=== PATIENT | female | born 1960 | race Caucasian/White ===

== ENCOUNTER 2019-07-05 16:33 | Emergency (ER) | payer BC, OTHER ==
[~2019-07-05] VITALS: Ht 160 cm; Wt 93.6 kg
[~2019-07-05 16:33] MED LIST: CEVIMELINE PO; ENBREL INJ; HYDROCET 5-5001 EACH PO; PREDNISOLONE5 MG; Z.0.ARAVA20 MG PO; Z.0.BENTYL20 MG; Z.0.CELEBREX200 MG; Z.0.DIOVAN160 MG PO; Z.0.METOPROLOL TART2; Z.0.NEURONTIN300 MG PO; Z.0.NEXIUM40 MG; Z.0.PLAQUENIL200 MG; Z.0.TRAZODONE HCL50; [UNRECOGNIZED DRUG - OTHER]
[2019-07-05] MEDS ORDERED: KETOROLAC TROMETHAMINE 60 MG/2 ML VIAL IM ONE (17:00)
[2019-07-05] MEDS ORDERED: COLACE100 MG PO (17:46)
[2019-07-05] MEDS ORDERED: ULTRAM 50MG50 MG PO (17:46)
--- NOTE | 2019-07-05 17:56 | Diagnostic Imaging Report ---
RIGHT KNEE - 3 Image(s) HISTORY: Fall, pain COMPARISON: None available. FINDINGS: Bones: No acute displaced fracture. No aggressive osseous lesion. Joints: Osseous alignment is within normal limits and the joint spaces are well-maintained. Soft tissues: The soft tissues appear unremarkable. IMPRESSION: No acute radiographic abnormality. Signed by: Dr. Michael Kumar D.O., M.M.M. on 07/05/2019 5:53 PM
[2019-07-05] MEDS ORDERED: KETOROLAC TROMETHAMINE 30 MG/ML VIAL ONE (17:59)
--- NOTE | 2019-07-05 17:59 | Diagnostic Imaging Report ---
RIGHT HIP - 2 Image(s) HISTORY: Fall, pain COMPARISON: None available. FINDINGS: Bones: Some of the osseous structures are partially obscured by stool and overlying bowel gas. A 6 mm curvilinear calcification adjacent to the superior aspect of the right greater trochanter. No aggressive osseous lesion. Joints: Minimal scattered degenerative changes. Soft tissues: Multiple pelvic phleboliths. IMPRESSION: A 6 mm calcific density adjacent to the superior aspect of the right greater trochanter, may reflect a subtle age-indeterminate avulsion fracture versus small focus of calcific tendinopathy. Correlate for an acute avulsion fracture via focal acute point tenderness. Signed by: Dr. Michael Kumar D.O., M.M.M. on 07/05/2019 5:55 PM
[2019-07-05 19:06] VITALS: BP 165/97
[2019-07-23] MEDS ORDERED: AMLODIPINE BESY10 MG PO (11:47)
[2019-07-23] MEDS ORDERED: INDOMETHACIN1 MG (11:47)
[2019-07-23] MEDS ORDERED: MONTELUKAST SOD10 MG PO (11:47)
[2019-07-23] MEDS ORDERED: NEXIUM20 MG PEG (11:47)
[2019-07-23] MEDS ORDERED: INDOMETHACIN75 MG PEG (11:47)
[2019-07-23] MEDS ORDERED: LOSARTAN-HCTZ1 EAC1 PO (11:47)
== END 2019-07-05 18:37 | disposition home or self-care (01) ==
LOC: FSED 16:33
DX: S83.411A Sprain of medial collateral ligament of right knee, initial encounter (principal); M25.551 Pain in right hip; W01.0XXA Fall on same level from slipping, tripping and stumbling without subsequent striking against object, initial encounter; Y92.008 Other place in unspecified non-institutional (private) residence as the place of occurrence of the external cause; F17.210 Nicotine dependence, cigarettes, uncomplicated; I10 Essential (primary) hypertension
CPT/HCPCS: 73502; 73562; 96372; 99284; J1885 ×2

== ENCOUNTER → 2019-07-26 | Day surgery (SDC) | payer BC ==
[2019-07-23 12:44] LABS: BLOOD UREA NITROGEN 13 mg/dL (7-26); BUN/CREATININE RATIO 20 (6-25); CALCIUM 10.1 mg/dL (8.4-10.2); CARBON DIOXIDE 28 mmol/L (22-29); CHLORIDE 92 mmol/L (98-107); CREATININE, SERUM 0.66 mg/dL (0.57-1.11); EST GLOMERULAR FILTRATION RATE > 60 ML/MIN (60-); GLUCOSE 85 mg/dL (74-118); SODIUM 130 mmol/L (136-145)
--- NOTE | 2019-07-23 13:40 | Diagnostic Imaging Report ---
Chest, PA and lateral. History: Preoperative evaluation for foot surgery. Comparison: None available. Discussion: The cardiomediastinal silhouette and pulmonary vasculature are within normal limits. The lungs are clear without evidence of consolidation or effusion. There are no acute osseous abnormalities. IMPRESSION: No radiographic evidence of acute cardiopulmonary abnormality. Signed by: Ivan Potter MD on 07/23/2019 1:37 PM
[~2019-07-26] MED LIST changes: +AMLODIPINE BESY10 MG PO; +BUPIVACAINE 0.25% 30ML SDV INJ ONE; +BUPIVACAINE HCL 0.5% INJ 30 ML VIAL INJ ONE; +CEFAZOLIN SOD 1 GM/NS 50ML 100 ML IV ONE; +COLACE100 MG PO; +DEXAMETHASONE SOD PHOS INJ 4 MG/ML VIAL ONE; +FENTANYL CITRATE/PF 100MCG/2 ML INJ ONE; +INDOMETHACIN1 MG; +INDOMETHACIN75 MG PEG; +KETOROLAC TROMETHAMINE 30 MG/ML VIAL ONE; +LIDOCAINE 1% W/EPINEPHRINE 20 ML VIAL ONE; +LIDOCAINE HCL 2% LOCAL INJ 5 ML SDV VIAL INJ ONE; +LOSARTAN-HCTZ1 EAC1 PO; +METHYLPREDNISOLONE ACETATE 80 MG/ML VIAL ONE; +MIDAZOLAM HCL 2 MG/2 ML VIAL ONE; +MONTELUKAST SOD10 MG PO; +NEXIUM20 MG PEG; +ONDANSETRON HCL INJ 2MG/ML 2ML 2 MG/ML VIAL ONE; +PROPOFOL IV EMULSION 10 MG/ML 20 ML VIAL ONE; +SEVOFLURANE INHAL SOLN 250 ML PEN BTL ONE; +ULTRAM 50MG50 MG PO
--- OUTSIDE RECORDS SUMMARY | 2019-07-26 05:13 | XMS REPORT ---
Author Author [facility] Address Unknown Phone Unavailable Care Team Providers Care Director Fixed Income Name Role Phone Garrett BURROWS Unavailable Unavailable Narinder SZYMANSKI Unavailable Unavailable Problems This patient has no known problems. Allergies, Adverse Reactions, Alerts This patient has no known allergies or adverse reactions. Medications This patient has no known medications. Results Test Description Test Time Test Comments Text Results Atomic Results Result Comments CHEST 2 VIEWS 2019-07-23 13:36:00 [facility] [address] [address] Patient Name: HUNTER JEAN MR #: [id number] : 1960 Age/Sex: 59/F Req #: [id number] Adm Physician: Ordered by: CEZAR BURROWS DO Report #: [id number] Location: OR Room/Bed: Procedure: [id number] DX/CHEST 2 VIEWS Exam Date: Exam Time: REPORT STATUS: Signed Chest, PA and lateral. History: Preoperative evaluation for foot surgery. Comparison: None available. Discussion: The cardiomediastinal silhouette and pulmonary vasculature are within normal limits. The lungs are clear without evidence of consolidation or effusion. There are no acute osseous abnormalities. IMPRESSION: No radiographic evidence of acute cardiopulmonary abnormality. Signed by: Ivan Houser MD on 07/23/2019 1:37 PM Dictated By: IVAN HOUSER MD 36 Transcribed By: HARSHIL on 07/23/191336 COPY TO: MARKOSCEZAR Garrett HIP 2 VW RT - HOPD 2019-07-05 17:53:[address] [address] Patient Name: HUNTER JEAN MR #: [id number] : 1960 Age/Sex: 59/F Req #: [id number] Adm Physician: Ordered by: GENNY SZYMANSKI MD Report #: [id number] Location: [facility] Room/Bed: Procedure: [id number] HOPD/HIP 2 VW RT - [facility] Exam Date: 07/05/19 Exam Time: 1732 REPORT STATUS: Signed RIGHT HIP - 2 Image(s) HISTORY: Fall, pain COMPARISON: None available. FINDINGS: Bones: Some of the osseous structures are partially obscured by stool and overlying bowel gas. A 6 mm curvilinear calcification adjacent to the superior aspect of the right greater trochanter. No aggressive osseous lesion. Joints: Minimal scattered degenerative changes. Soft tissues: Multiple pelvic phleboliths. IMPRESSION: A 6 mm calcific density adjacent to the superior aspect of the right greater trochanter, may reflect a subtle age- indeterminate avulsion fracture versus small focus of calcific tendinopathy. Correlate for an acute avulsion fracture via focal acute point tenderness. Signed by: Mariano AritaO., M.M.M. on 07/05/2019 5:55 PM Dictated By: RONEY KUMAR DO 54 Transcribed By: HARSHIL on 07/05/191754 COPY TO: GENNY SZYMANSKI MD KNEE 3VW RT - HOPD 2019-07-05 17:52:00 [address] [address] Patient Name: HUNTER JEAN MR #: [id number] : 1960 Age/Sex: 59/F Req #: [id number] Adm Physician: Ordered by: GENNY SZYMANSKI MD Report #: [id number] Location: [facility] Room/Bed: Procedure: [id number] HOPD/KNEE 3VW RT - HOPD Exam Date: 07/05/19 Exam Time: 1732 REPORT STATUS: Signed RIGHT KNEE - 3 Image(s) HISTORY: Fall, pain COMPARISON: None available. FINDINGS: Bones: No acute displaced fracture. No aggressive osseous lesion. Joints: Osseous alignment is within normal limits and the joint spaces are well- maintained. Soft tissues: The soft tissues appear unremarkable. IMPRESSION: No acute radiographic abnormality. Signed by: Dr. Roney Kumar D.O., M.M.M. on 07/05/2019 5:53 PM Dictated By: RONEY KUMAR DO 52 Transcribed By: HARSHIL on 07/05/191752 COPY TO: GENNY SZYMANSKI MD
[2019-07-26 06:42] LABS: ANION GAP 11.2 mmol/L (8-16); BLOOD UREA NITROGEN 12 mg/dL (7-26); BUN/CREATININE RATIO 19 (6-25); CALCIUM 8.9 mg/dL (8.4-10.2); CARBON DIOXIDE 27 mmol/L (22-29); CHLORIDE 93 mmol/L (98-107); CREATININE, SERUM 0.64 mg/dL (0.57-1.11); EST GLOMERULAR FILTRATION RATE > 60 ML/MIN (60-); GLUCOSE 107 mg/dL (74-118); POTASSIUM 3.2 mmol/L (3.5-5.1); SODIUM 128 mmol/L (136-145)
[2019-07-26 09:15] VITALS: BP 129/92
--- NOTE | 2019-07-26 12:27 | NUR ---
ORTHOPEDICS OPERATIVE NOTE DATE OF SURGERY: 07/26/19 PREOPERATIVE DIAGNOSES: Right Knee Medial Meniscus Tear POSTOPERATIVE DIAGNOSES: Right Knee Medial Meniscus Tear, Chondromalacia, Impinging Plica, Lateral compartment pericruciate cyst PROCEDURE: Right Knee Arthroscopic Medial Meniscus Repair, Excision of pericruciate cyst, Excision of Impinging Plica, Chondroplasty, SURGEON: Berkley Navarro DO CREEL OPERATOR: None ANESTHESIA: General COMPLICATIONS: None TOURNIQUET: Applied but not inflated. No tourniquet EBL: Minimal INDICATIONS: Due to persistent pain and limitations on activity combined with findings on exam and imaging, the patient requests surgical treatment. Nonopera tive care and alternative surgical options were reviewed. We agreed that this provided the best risk/benefit profile for this patient, understanding and accepting risks of recurrent/persistent symptoms, infection, bleeding, stiffness, neurological/vascular damage, failure to improve and anesthetic complication (as reviewed by anesthesia service). Also, the patient understands that arthroscopic treatment of articular cartilage lesions provides temporary incomplete relief but that meniscal symptoms should be well addressed. FINDINGS: RIGHT Knee Patella Grade 3-4 Chondromalacia of lateral patellar ridge Trochlea - Grade 1 Lateral Gutter Chondral loose bodies Medial Gutter Chondral loose bodies Medial Compartment Femoral - Grade 1 Tibial - Grade 1 Medial Meniscus - Red red zone undersurface tear of body posterior horn junction Cruciate region - Lateral sided pericruciate ligament cyst Lateral Compartment Femoral - Grade 1 Tibial - Grade 1-2 Lateral Meniscus - lateral pericruciate cyst impinging near posterior horn meniscus root Synovium - Hypertrophic impinging plica PROCEDURE: With the patient in the supine position with all prominences well padded, general anesthesia was obtained. Sterile prepping and draping were performed. Antibiotics had been given and a time out performed. After an injection of 1% Lidocaine with Epinephrine in the proposed incision sites, The arthroscope was i nserted via a small lateral parapatellar tendon incision into the patellofemoral space. Under direct visualization, a medial parapatellar tendon portal was created providing a working portal. Diagnostic arthroscopy was performed and the above findings were noted. Within the patellofemoral space, grade 3-4 chondromalacia was noted within the superior portion of the lateral central patellar ridge Within the medial compartment, the medial meniscus was debrided, trephinated to get a good bleeding bed. A ceterix 2-0 novostitch and fast fix was used to reapproxiamate and stilized the tear. A fast fix was used to help maintain the meniscus abutment. The meniscus repair was found to be stable on probing. t There was grade 1 chondromalacia, which was debrided to stable borders. Within the intercondylar space, the ACL was visualized and intact The lateral compartment demonstrated a pericruciate cyst near the posterior horn root of the lateral meniscus. This was excised with a shaver. Chondroplasty was performed on the patella to provide a stable border and the impinging medial plica was excised. The joint was extravasated and a fibrin clot was injected over the repair to improve biologic healing. 0.25% marcaine was injected into the knee. The incisions were closed and more local was injected around the portal sites. Steristrips, Xeroform, 4x4s, ABDs and a compressive PAPA bandage and a brace were applied. The patient was awakened and transferred to the PACU in satisfactory condition having tolerated the procedure well. PREOPERATIVE DIAGNOSES: Left Knee Medial Meniscal Root and Lateral Meniscus Tear POSTOPERATIVE DIAGNOSES: Left Knee Medial Meniscal Root and Lateral Meniscus Posterior Horn Tear, Medial Plica Syndrome PROCEDURE: Left Knee Arthroscopic Medial Mensical Root Repair and Lateral Meniscus Posterior Horn Repair, Excision of Medial Plica, Application of Fibrin Clot SURGEON: Berkley Navarro DO CREEL OPERATOR: ELIZABETH Parker ANESTHESIA: General COMPLICATIONS: None TOURNIQUET: Applied but not inflated. No tourniquet EBL: Minimal INDICATIONS: Due to persistent pain and limitations on activity combined with findings on exam and imaging, the patient requests surgical treatment. Nonopera tive care and alternative surgical options were reviewed. We agreed that this provided the best risk/benefit profile for this patient, understanding and accepting risks of recurrent/persistent symptoms, infection, bleeding, stiffness, neurological/vascular damage, failure to improve and anesthetic complication (as reviewed by anesthesia service). Also, the patient understands that arthroscopic treatment of articular cartilage lesions provides temporary incomplete relief but that meniscal symptoms should be well addressed. FINDINGS: LEFT Knee 1.Patella Grade 2 2.Trochlea - Grade 1 3.Lateral Gutter Normal 4.Medial Gutter Normal 5.Medial Compartment a.Femoral - Grade 2 b.Tibial - Grade 1 c.Medial Meniscus - attenuated and imcompetent root tear 6.Cruciate region - Normal 7.Lateral Compartment a.Femoral - Normal b.Tibial - Grade 1 c.Lateral Meniscus - Unstable posterior horn undersided tear 8.Synovium - Hypertrophic Impinging Plica PROCEDURE: With the patient in the supine position with all prominences well padded, general anesthesia was obtained. Sterile prepping and draping were performed. Antibiotics had been given and a time out performed. After an injection of 1% Lidocaine with Epinephrine in the proposed incision sites, The arthroscope was i nserted via a small lateral parapatellar tendon incision into the patellofemoral space. Under direct visualization, a medial parapatellar tendon portal was created providing a working portal. Diagnostic arthroscopy was performed and the above findings were noted. Within the patellofemoral space, Within the medial compartment, the medial meniscus was debrided to establish a well-balanced rim, removing approximately 60% of the posterior horn of the medial meniscus. A stable border was created. There was grade 2-3 chondromalacia, which was debrided to stable borders. Within the intercondylar space, the ACL was visualized and intact The lateral compartment demonstrated a friable and frayed lateral meniscus with grade 2-3 chondromalacia. This was debrided with an arthroscopic shaver to a st able border with 80% of the meniscus remaining. Chondroplasty was performed on the trochlea to provide a stable border. The joint was extravasated and .25% marcaine was injected into the knee. The incisions were closed and more local was injected around the portal sites. Steristrips, Xeroform, 4x4s, ABDs and a compressive PAPA bandage were applied. The patient was awakened and transferred to the PACU in satisfactory condition having tolerated the procedure well.
== END | disposition home or self-care (01) ==
LOC: OR 05:00
PROVIDERS: ATTEND Orthopaedic Surgery
DX: S83.231A Complex tear of medial meniscus, current injury, right knee, initial encounter (principal); S76.011A Strain of muscle, fascia and tendon of right hip, initial encounter; S83.411A Sprain of medial collateral ligament of right knee, initial encounter; M67.51 Plica syndrome, right knee; M25.861 Other specified joint disorders, right knee; M22.41 Chondromalacia patellae, right knee; M06.9 Rheumatoid arthritis, unspecified; I10 Essential (primary) hypertension; M35.00 Sjogren syndrome, unspecified; J45.909 Unspecified asthma, uncomplicated; K44.9 Diaphragmatic hernia without obstruction or gangrene; K57.90 Diverticulosis of intestine, part unspecified, without perforation or abscess without bleeding; F17.210 Nicotine dependence, cigarettes, uncomplicated; X58.XXXA Exposure to other specified factors, initial encounter; Z01.810 Encounter for preprocedural cardiovascular examination; Z01.812 Encounter for preprocedural laboratory examination; Z01.818 Encounter for other preprocedural examination; Z87.01 Personal history of pneumonia (recurrent)
CPT/HCPCS: 29882; 29999; 36415 ×2; 71046; 80048 ×2; 93005; C1713 ×2; C1893; J0690; J1040; J1100; J1885; J2001; J2250; J2405; J2704; J3010

== ENCOUNTER → 2020-05-25 | Day surgery (SDC) | payer BC, OTHER ==
[2020-05-17 10:53] LABS: BASOPHILS # (AUTO) 0.1 (0.0-0.1); BASOPHILS % 1.4 % (0.0-1.0); EOSINOPHILS # (AUTO) 0.1 (0.0-0.4); EOSINOPHILS % 1.1 % (0.0-6.0); HEMATOCRIT 47.4 % (34.2-44.1); HEMOGLOBIN 15.7 g/dL (12.0-16.0); LYMPHOCYTES # (AUTO) 2.6 (1.0-3.2); LYMPHOCYTES % 25.9 % (18.0-39.1); MEAN CORPUSCULAR HEMOGLOBIN 29.3 pg (28-32); MEAN CORPUSCULAR HGB CONC 33.1 g/dL (31-35); MEAN CORPUSCULAR VOLUME 88.6 fL (81-99); MONOCYTES # (AUTO) 1.1 (0.2-0.8); NEUTROPHILS # (AUTO) 5.9 (2.1-6.9); NEUTROPHILS % 59.1 % (38.7-80.0); PLATELET COUNT 397 x10e3/uL (140-360); RED BLOOD COUNT 5.35 x10e6/uL (3.6-5.1); RED CELL DISTRIBUTION WIDTH 13.5 % (11.7-14.4)
[2020-05-17 11:09] LABS: INR 0.84
[2020-05-17 11:10] LABS: PARTIAL THROMBOPLASTIN TIME 23.8 seconds (23.8-35.5)
--- NOTE | 2020-05-17 11:11 | Diagnostic Imaging Report ---
EXAMINATION: CHEST 2 VIEWS INDICATION: Pre-operative COMPARISON: None FINDINGS: LINES/TUBES:None LUNGS:The lungs are well-inflated. No focal consolidation or pulmonary edema. PLEURA:No pleural effusion or pneumothorax. MEDIASTINUM:The cardiomediastinal silhouette appears normal in size and shape. BONES/SOFT TISSUES:No acute osseous injury. ABDOMEN:No free air under the diaphragm. Status post cholecystectomy. IMPRESSION: No focal pneumonia or pulmonary edema. Signed by: Scotty Hong MD on 05/17/2020 11:08 AM
[2020-05-17 11:13] LABS: ANION GAP 11.5 mmol/L (8-16); BLOOD UREA NITROGEN 10 mg/dL (7-26); BUN/CREATININE RATIO 16 (6-25); CALCIUM 8.9 mg/dL (8.4-10.2); CARBON DIOXIDE 30 mmol/L (22-29); CHLORIDE 95 mmol/L (98-107); CREATININE, SERUM 0.62 mg/dL (0.57-1.11); EST GLOMERULAR FILTRATION RATE > 60 ML/MIN (60-); GLUCOSE 90 mg/dL (74-118); POTASSIUM 3.5 mmol/L (3.5-5.1); SODIUM 133 mmol/L (136-145)
[~2020-05-25] MED LIST changes: +ACETAMINOPHEN 1000 MG/100 ML 100 ML IV ONE; +BACITRACIN 50,000 UNIT VIAL ONE; -BUPIVACAINE 0.25% 30ML SDV INJ ONE; +BUPIVACAINE 0.25%/EPI 30ML SDV INJ ONE; -BUPIVACAINE HCL 0.5% INJ 30 ML VIAL INJ ONE; +BUPROPION HCL150 MG PO; +ETOMIDATE 2 MG/ML 10 ML INJ IV ONE; +GLYCOPYRROLATE INJ 0.2 MG/ML VIAL ONE; +IBUPROFEN 800MG/ 200ML 200 ML IV ONE; -INDOMETHACIN75 MG PEG; +INDOMETHACIN75 MG PO; -KETOROLAC TROMETHAMINE 30 MG/ML VIAL ONE; -LIDOCAINE 1% W/EPINEPHRINE 20 ML VIAL ONE; +LIDOCAINE HCL (LTA) 4 ML SOLN ONE; +LIDOCAINE HCL 2% JELLY 5 ML TUBE ONE; +MEDROL4 MG PO; -METHYLPREDNISOLONE ACETATE 80 MG/ML VIAL ONE; -MIDAZOLAM HCL 2 MG/2 ML VIAL ONE; +NEOSTIGMINE 1 MG/ML 10ML VIAL ONE; +QVAR REDIHALE10.6 G1 INH; +ROCURONIUM BROMIDE 10 MG/ML 5ML VIAL IV ONE; +THROMBIN FOR SOLN 5,000 UNIT VIAL ONE
--- NOTE | 2020-05-25 09:51 | Operative Report ---
DATE OF PROCEDURE: 05/25/2020 SURGEON: Mando Hardy MD PREOPERATIVE DIAGNOSIS: Right L5-S1 disk herniation with radiculopathy, M51.17. POSTOPERATIVE DIAGNOSIS: Right L5-S1 disk herniation with radiculopathy, M51.17. PROCEDURE: Right L5-S1 laminotomy, medial facetectomy, and microsurgical diskectomy, 61961. ANESTHESIA: General. INDICATIONS: The patient is a 60-year-old woman who presents with a right L5-S1 disk herniation and was taken to surgery for microsurgical diskectomy. PROCEDURE IN DETAIL: After induction of anesthesia, the patient was placed on the operating table in prone position over Delmar frame. The lumbar region was prepped and draped in sterile fashion. A preoperative x-ray was obtained. A small midline incision was created over the L5-S1 segment. The lumbar fascia was opened in right of midline and a subperiosteal dissection was carried out to expose the right side of the L5 and S1 laminae and the medial aspect of the facet joint and a second x-ray confirmed correct localization. The operating microscope was brought in. A high-speed drill equipped with elmo bur was used to drill the inferior aspect of lamina of L5 and the medial rim of the inferior articular process of L5. The ligamentum flavum was resected, and the lateral aspect of dural sac and the right S1 nerve root were exposed. The nerve root was slightly retracted medially and the herniated disk material immediately came into view under the nerve root. The herniated disk material was mobilized with a micro ball probe and grasped with a micro pituitary rongeur and removed as a sizable fragment of disk. The opening into the posterior longitudinal ligament and posterior annulus of the disk was then enlarged with a #11 blade and then loose contents of the L5-S1 disk and the subligamentous portion of the disk herniation were retrieved and removed. Meticulous hemostasis was secured. The wound was copiously irrigated with bacitracin solution. The wound was closed in multiple layers with 0 and 2-0 Vicryl sutures. The skin was closed with 3-0 Monocryl sutures in subcuticular fashion. Steri-Strips and dressing were applied. The patient was awakened, extubated, and taken to postanesthesia care unit in stable condition. COMPLICATIONS: No intraoperative complications were encountered. ESTIMATED BLOOD LOSS: 10 mL. Mando Hardy MD PP/TAMEKA /[id number]
[2020-05-25 10:20] VITALS: BP 127/92
== END | disposition home or self-care (01) ==
LOC: OR 05:25
PROVIDERS: ATTEND Neurological Surgery
DX: M51.17 Intervertebral disc disorders with radiculopathy, lumbosacral region (principal); M43.16 Spondylolisthesis, lumbar region; M51.16 Intervertebral disc disorders with radiculopathy, lumbar region; I10 Essential (primary) hypertension; E78.5 Hyperlipidemia, unspecified; M35.00 Sjogren syndrome, unspecified; M06.9 Rheumatoid arthritis, unspecified; J45.909 Unspecified asthma, uncomplicated; K21.9 Gastro-esophageal reflux disease without esophagitis; F32.9 Major depressive disorder, single episode, unspecified; F17.210 Nicotine dependence, cigarettes, uncomplicated; Z01.810 Encounter for preprocedural cardiovascular examination; Z01.812 Encounter for preprocedural laboratory examination; Z01.818 Encounter for other preprocedural examination; Z11.59 Encounter for screening for other viral diseases
CPT/HCPCS: 36415; 63047; 71046; 72020; 80048; 85025; 85610; 85730; 86850; 86900; 88304; 93005; J0131; J0690; J1100; J2001 ×2; J2405; J2704; J2710; J3010; U0002

== ENCOUNTER 2025-06-29 22:43 | Inpatient (IN) | payer MEDICARE ==
[~2025-06-29] VITALS: Ht 160 cm; Wt 83.0 kg
[~2025-06-29 22:43] MED LIST changes: -ACETAMINOPHEN 1000 MG/100 ML 100 ML IV ONE; -BACITRACIN 50,000 UNIT VIAL ONE; -BUPIVACAINE 0.25%/EPI 30ML SDV INJ ONE; -CEFAZOLIN SOD 1 GM/NS 50ML 100 ML IV ONE; -DEXAMETHASONE SOD PHOS INJ 4 MG/ML VIAL ONE; -ETOMIDATE 2 MG/ML 10 ML INJ IV ONE; -FENTANYL CITRATE/PF 100MCG/2 ML INJ ONE; -GLYCOPYRROLATE INJ 0.2 MG/ML VIAL ONE; -IBUPROFEN 800MG/ 200ML 200 ML IV ONE; -LIDOCAINE HCL (LTA) 4 ML SOLN ONE; -LIDOCAINE HCL 2% JELLY 5 ML TUBE ONE; -LIDOCAINE HCL 2% LOCAL INJ 5 ML SDV VIAL INJ ONE; -NEOSTIGMINE 1 MG/ML 10ML VIAL ONE; -ONDANSETRON HCL INJ 2MG/ML 2ML 2 MG/ML VIAL ONE; -PROPOFOL IV EMULSION 10 MG/ML 20 ML VIAL ONE; -ROCURONIUM BROMIDE 10 MG/ML 5ML VIAL IV ONE; -SEVOFLURANE INHAL SOLN 250 ML PEN BTL ONE; -THROMBIN FOR SOLN 5,000 UNIT VIAL ONE
[2025-06-29 23:05] VITALS: TEMP 97.6
[2025-06-29 23:52] LABS: BASOPHILS % 1.1 % (0.0-1.0); EOSINOPHILS % 1.9 % (0.0-6.0); LYMPHOCYTES % 41.4 % (18.0-39.1); MONOCYTES % 9.9 % (4.4-11.3); NEUTROPHILS % 44.6 % (38.7-80.0); RED CELL DISTRIBUTION WIDTH 15.7 % (11.7-14.4)
[2025-06-30] VITALS (12 sets, daily range): BP systolic 96–143; BP diastolic 65–103; PULSE 82–96; RESP 15–21; TEMP 95.7–97.8; O2SAT 90–100
[2025-06-30 00:07] LABS: EST GLOMERULAR FILTRATION RATE 86.0 ML/MIN (>=60)
[2025-06-30 00:13] LABS: CORONAVIRUS COVID-19 AG NEGATIVE (NEGATIVE)
[2025-06-30] MEDS: SODIUM CHLORIDE 0.9% 1000ML 1,000 ML IV SCH (00:36)
[2025-06-30] MEDS ORDERED: IOPAMIDOL 370 MG/ML 100 ML INFUS..BTL INJ ONE (04:30)
[2025-06-30] MEDS ORDERED: FOLIC ACID0.4 MG PO (08:14)
[2025-06-30] MEDS: FUROSEMIDE INJ 10 MG/ML 2 ML VIAL IV ONE (12:52)
[2025-06-30] MEDS ORDERED: SODIUM CHLORIDE 0.9% 250ML 250 ML ONE (12:57)
[2025-06-30 15:23] LABS: EST GLOMERULAR FILTRATION RATE 89.0 ML/MIN (>=60)
[2025-06-30] MEDS ORDERED: SPIRONOLACTONE25 MG PO (18:15)
[2025-06-30] MEDS ORDERED: LOPERAMIDE HCL 2 MG CAP PO PRN (18:30)
[2025-07-01] VITALS (10 sets, daily range): BP systolic 103–117; BP diastolic 70–90; PULSE 80–98; RESP 16–21; TEMP 97.5–98.1; O2SAT 94–100
[2025-07-01 06:07] LABS: BASOPHILS % 1.1 % (0.0-1.0); EOSINOPHILS % 2.1 % (0.0-6.0); LYMPHOCYTES % 33.3 % (18.0-39.1); MONOCYTES % 10.9 % (4.4-11.3); NEUTROPHILS % 51.5 % (38.7-80.0); RED CELL DISTRIBUTION WIDTH 16.1 % (11.7-14.4)
[2025-07-01 06:59] LABS: EST GLOMERULAR FILTRATION RATE 96.0 ML/MIN (>=60)
[2025-07-01] MEDS ORDERED: LOSARTAN POTASSIUM 100 MG TAB PO SCH (09:00)
[2025-07-01] MEDS ORDERED: AMLODIPINE BESYLATE 5 MG TAB PO SCH (09:00)
[2025-07-01] MEDS: DICYCLOMINE HCL 20 MG TAB PO SCH (10:03)
[2025-07-01] MEDS: NICOTINE 14 MG/EA PATCH TOP SCH (10:03)
[2025-07-01 11:30] LABS: CDIFF AG QUIK CHEK NEGATIVE (NEGATIVE); CDIFF TOX QUIK CHEK NEGATIVE (NEGATIVE); WBC,FECAL (FECAL LACTOFERRIN) NEGATIVE (NEGATIVE)
[2025-07-01] MEDS: FUROSEMIDE INJ 10 MG/ML 2 ML VIAL IV ONE (17:09)
[2025-07-01 17:18] LABS: ABG BASE EXCESS -3.0 mmol/L (-2 - 3); ABG HCO3 21 mmol/L (22-26); ABG OXYGEN SATURATION 96.0 % (95-98); ABG PCO2 30 mmHg (35-45); ABG PH 7.45 (7.35-7.45); ABG PO2 76 mmHg (80-105); ABG TCO2 22
[2025-07-02] VITALS (9 sets, daily range): BP systolic 103–127; BP diastolic 80–90; PULSE 84–100; RESP 17–19; TEMP 97.1–97.7; O2SAT 94–98
[2025-07-02] MEDS ORDERED: MELATONIN 3 MG TAB PO PRN
[2025-07-02] MEDS ORDERED: ACETAMINOPHEN 325 MG TAB PO PRN
[2025-07-02] MEDS ORDERED: HYDRALAZINE HCL 20 MG/ML VIAL IV PRN
[2025-07-02] MEDS ORDERED: ALBUTEROL SULF 0.083% NEB SOLN 3 ML NEB NEB PRN
[2025-07-02] MEDS ORDERED: ONDANSETRON HCL INJ 2MG/ML 2ML 2 MG/ML VIAL IV PRN
[2025-07-02] MEDS ORDERED: GUAIFENESIN/DEXTROMETHORPHAN LIQD 5 ML UDC PO PRN
[2025-07-02] MEDS: SODIUM CHLORIDE 1 GM TAB PO ONE ×2 (06:14→06:45)
[2025-07-02 07:19] LABS: BASOPHILS % 1.4 % (0.0-1.0); EOSINOPHILS % 1.6 % (0.0-6.0); LYMPHOCYTES % 29.6 % (18.0-39.1); MONOCYTES % 8.7 % (4.4-11.3); NEUTROPHILS % 57.3 % (38.7-80.0); RED CELL DISTRIBUTION WIDTH 16.3 % (11.7-14.4)
[2025-07-02 08:17] LABS: EST GLOMERULAR FILTRATION RATE 77.0 ML/MIN (>=60)
[2025-07-02 08:58] LABS: LACTATE DEHYDROGENASE 383.0 IU/L (125-220)
[2025-07-02] MEDS: IPRATROPIUM BROMIDE 0.02% 2.5 ML NEB NEB SCH (09:01)
[2025-07-02] MEDS: PREDNISONE 20 MG TAB PO SCH (09:10)
[2025-07-02] MEDS: MULTIVITAMINS/MINERALS TAB PO SCH (09:10)
[2025-07-02] MEDS: ENOXAPARIN SOD INJ 40 MG/0.4 ML SYR SC SCH (17:00)
[2025-07-02] MEDS ORDERED: DICYCLOMINE HCL20 MG PO (17:42)
[2025-07-02] MEDS ORDERED: PREDNISONE20 MG PO (17:43)
== END 2025-07-02 19:32 | disposition home or self-care (01) | DRG 291 ==
LOC: ER 22:53 → ERHOLD 06-30 01:07 → MED/SURG 06-30 02:05
PROVIDERS: ADMIT Internal Medicine; ATTEND Internal Medicine
DX: I11.0 Hypertensive heart disease with heart failure (principal); I50.33 Acute on chronic diastolic (congestive) heart failure; J18.9 Pneumonia, unspecified organism; J96.22 Acute and chronic respiratory failure with hypercapnia; J96.21 Acute and chronic respiratory failure with hypoxia; E87.1 Hypo-osmolality and hyponatremia; J44.0 Chronic obstructive pulmonary disease with (acute) lower respiratory infection; J44.1 Chronic obstructive pulmonary disease with (acute) exacerbation; J45.901 Unspecified asthma with (acute) exacerbation; G81.91 Hemiplegia, unspecified affecting right dominant side; E66.2 Morbid (severe) obesity with alveolar hypoventilation; I50.813 Acute on chronic right heart failure; I27.23 Pulmonary hypertension due to lung diseases and hypoxia; I27.81 Cor pulmonale (chronic); I44.7 Left bundle-branch block, unspecified; I49.3 Ventricular premature depolarization; F17.200 Nicotine dependence, unspecified, uncomplicated; Z71.6 Tobacco abuse counseling; M06.9 Rheumatoid arthritis, unspecified; M35.00 Sjogren syndrome, unspecified; Z71.3 Dietary counseling and surveillance; Z68.32 Body mass index [BMI] 32.0-32.9, adult; K52.9 Noninfective gastroenteritis and colitis, unspecified; R15.2 Fecal urgency; K21.9 Gastro-esophageal reflux disease without esophagitis; Z11.52 Encounter for screening for COVID-19; Z79.899 Other long term (current) drug therapy
CPT/HCPCS: 36415; 36600; 71045; 71260; 80048; 80053; 82550; 82728; 82805; 83615; 83630; 83690; 83880; 83993; 84443; 84484; 85025; 86140; 87045; 87177; 87324; 87449; 93005; 93306; 94799; 99284; J1650; J1938; J2470; J2543; J7030; J7050; J7512; Q9967

== ENCOUNTER 2025-07-05 00:40 | Inpatient (IN) | payer MEDICARE ==
[2025-07-05] VITALS (24 sets, daily range): BP systolic 107–139; BP diastolic 75–117; PULSE 78–117; RESP 12–23; TEMP 97.5–98.7; O2SAT 92–98
[~2025-07-05] VITALS: Ht 160 cm; Wt 83.0 kg
[~2025-07-05 00:40] MED LIST changes: +DICYCLOMINE HCL20 MG PO; +FOLIC ACID0.4 MG PO; +PREDNISONE20 MG PO; +SPIRONOLACTONE25 MG PO
[2025-07-05] MEDS: ALBUTEROL/IPRATROPIUM 3 ML NEB NEB ONE (01:04)
[2025-07-05 01:15] LABS: BASOPHILS % 0.4 % (0.0-1.0); EOSINOPHILS % 0.0 % (0.0-6.0); LYMPHOCYTES % 6.8 % (18.0-39.1); MONOCYTES % 5.0 % (4.4-11.3); NEUTROPHILS % 86.4 % (38.7-80.0); RED CELL DISTRIBUTION WIDTH 16.7 % (11.7-14.4)
[2025-07-05 01:35] LABS: EST GLOMERULAR FILTRATION RATE 57.0 ML/MIN (>=60)
[2025-07-05] MEDS ORDERED: ONDANSETRON HCL INJ 2MG/ML 2ML 2 MG/ML VIAL IV PRN (03:15)
[2025-07-05] MEDS ORDERED: SODIUM CHLORIDE FLUSH 10 ML SYR INJ PRN (03:15)
[2025-07-05] MEDS ORDERED: DICYCLOMINE HCL20 MG PO (04:08)
[2025-07-05] MEDS: ALBUTEROL/IPRATROPIUM 3 ML NEB NEB SCH (07:43)
[2025-07-05] MEDS: ASPIRIN 325 MG TAB EC PO SCH (09:15)
[2025-07-05] MEDS: FUROSEMIDE INJ 10 MG/ML 4 ML VIAL IV ONE (11:01)
[2025-07-05] MEDS ORDERED: METOPROLOL TARTRATE 25 MG TAB PO SCH (12:00)
[2025-07-05] MEDS: METHYLPREDNISOLONE SOD SUCC 40 MG/ML VIAL 1ML IV ONE (17:51)
[2025-07-05] MEDS: BUDESONIDE/FORMOTEROL 160/4.5MCG INHALER INH SCH (18:42)
[2025-07-05] MEDS: SODIUM CHLORIDE 0.9% 1000ML 1,000 ML IV SCH (19:05)
[2025-07-05] MEDS: NICOTINE 14 MG/EA PATCH TOP SCH (20:44)
[2025-07-06] VITALS (12 sets, daily range): BP systolic 99–118; BP diastolic 73–93; PULSE 69–126; RESP 16–23; TEMP 97.3–98.1; O2SAT 91–100
[2025-07-06 05:57] LABS: BASOPHILS % 0.2 % (0.0-1.0); EOSINOPHILS % 0.0 % (0.0-6.0); LYMPHOCYTES % 11.0 % (18.0-39.1); MONOCYTES % 8.1 % (4.4-11.3); NEUTROPHILS % 79.7 % (38.7-80.0); RED CELL DISTRIBUTION WIDTH 17.3 % (11.7-14.4)
[2025-07-06 06:20] LABS: EST GLOMERULAR FILTRATION RATE 62.0 ML/MIN (>=60)
[2025-07-06] MEDS: METHYLPREDNISOLONE SOD SUCC 125 MG/2ML VIAL IV ONE (11:01)
[2025-07-07] VITALS (11 sets, daily range): BP systolic 107–121; BP diastolic 85–96; PULSE 72–119; RESP 17–23; TEMP 97–97.6; O2SAT 94–100
[2025-07-07] MEDS: HEPARIN SOD (PORCINE) 1000 UNIT/ML 30ML ONE (08:18)
[2025-07-07] MEDS: FLUCONAZOLE 100 MG TAB PO ONE (09:51)
[2025-07-07] MEDS: FENTANYL CITRATE/PF 100MCG/2 ML INJ ONE (11:05)
[2025-07-07] MEDS: MIDAZOLAM HCL 2 MG/2 ML VIAL ONE ×2 (11:05)
[2025-07-07] MEDS: IOPAMIDOL 370 MG/ML 100 ML INFUS..BTL INJ ONE (11:06)
[2025-07-07] MEDS: SODIUM CHLORIDE 0.9% 1000ML 1,000 ML ONE (11:06)
[2025-07-07] MEDS: SODIUM CHLORIDE 0.9% 0 ML ONE (11:06)
[2025-07-07] MEDS: LIDOCAINE HCL 2% LOCAL 20 ML VIAL ONE (11:06)
[2025-07-07] MEDS: NITROGLYCERIN/D5W 200 MCG/ML 250 ML ONE (11:07)
[2025-07-07] MEDS: HEPARIN SOD/SOD CHLORIDE 2,000 ML ONE (11:07)
[2025-07-07] MEDS: VERAPAMIL HCL 2.5 MG/ML 2 ML VIAL ONE (11:08)
[2025-07-07] MEDS ORDERED: ASPIRIN ENTERI325 MG PO (18:17)
== END 2025-07-07 19:55 | disposition home or self-care (01) | DRG 280 ==
LOC: ER 00:49 → ERHOLD 03:04 → MED/SURG3 03:50
PROVIDERS: ADMIT Internal Medicine; ATTEND Internal Medicine
PROC: 4A023N8 Measurement of Cardiac Sampling and Pressure, Bilateral, Percutaneous Approach (ICD-10-PCS; principal; 2025-07-05)
PROC: B2111ZZ Fluoroscopy of Multiple Coronary Arteries using Low Osmolar Contrast (ICD-10-PCS; 2025-07-05)
PROC: B2151ZZ Fluoroscopy of Left Heart using Low Osmolar Contrast (ICD-10-PCS; 2025-07-05)
DX: I50.810 Right heart failure, unspecified (principal); J96.01 Acute respiratory failure with hypoxia; I21.A1 Myocardial infarction type 2; B37.0 Candidal stomatitis; J44.1 Chronic obstructive pulmonary disease with (acute) exacerbation; E87.1 Hypo-osmolality and hyponatremia; I47.19 Other supraventricular tachycardia; D84.821 Immunodeficiency due to drugs; I50.33 Acute on chronic diastolic (congestive) heart failure; R55 Syncope and collapse; I11.0 Hypertensive heart disease with heart failure; M35.00 Sjogren syndrome, unspecified; E78.00 Pure hypercholesterolemia, unspecified; I27.20 Pulmonary hypertension, unspecified; M06.9 Rheumatoid arthritis, unspecified; Z72.0 Tobacco use; Z79.631 Long term (current) use of antimetabolite agent; I25.2 Old myocardial infarction
CPT/HCPCS: 36415; 70450; 71045; 72125; 76937; 80053; 82550; 83880; 84484; 85025; 93005; 93460; 93880; 94640; 94799; 99152; 99153; 99252; 99284; C1751; C1769; C1887; C1894; J1644; J1938; J2003; J2250; J2919; J7030; J7050; Q9967